=== PATIENT | female | born 1980 | race Two or more races ===

== ENCOUNTER 2025-07-06 07:12 | Emergency (ER) | payer MEDICAID, SELFPAY ==
[2025-07-06 07:25] VITALS: BP 112/75; PULSE 68; RESP 16; TEMP 36.7; O2SAT 98; BMI 30.9
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
[2025-07-06 08:41] LABS: HCG Qualitative,Urine Negative
[2025-07-06] MEDS: ACETAMINOPHEN 500 MG TABLET 1000 MG PO (09:58)
[2025-07-06] MEDS: DIPHTH,PERTUSS(ACELL),TET VAC 0.5 ML SYR- ADULT IMi (10:01)
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
[2025-07-06 11:45] VITALS: BP 112/72; PULSE 68; RESP 18; TEMP 36.6; O2SAT 99
== END 2025-07-06 11:53 | disposition home or self-care (01) ==
PROVIDERS: Nurse Practitioner Primary Care; Emergency Provider Emergency Medicine
DX: S60.222A Contusion of left hand, initial encounter (principal); M79.605 Pain in left leg; M54.2 Cervicalgia; V89.2XXA Person injured in unspecified motor-vehicle accident, traffic, initial encounter; Y92.410 Unspecified street and highway as the place of occurrence of the external cause; R07.9 Chest pain, unspecified; R10.9 Unspecified abdominal pain; Z23 Encounter for immunization
CPT/HCPCS: 70450; 71250; 72125; 73130; 73590; 74176; 81025; 90471; 90715; 99284; A9270

== ENCOUNTER 2025-07-21 07:25 | Day surgery (SDC) | payer MEDICAID, SELFPAY ==
[2025-07-18 08:26] VITALS: BMI 31.1
[2025-07-18 09:54] LABS: Basophils # (Auto) 0.0 Thou/mm3 (0.0-0.2); Basophils % (Auto) 1 % (0-2.5); Eosinophils # (Auto) 0.1 Thou/mm3 (0.0-0.5); Eosinophils % (Auto) 2 % (0-10); Hematocrit 39.4 % (36.0-46.0); Hemoglobin 13.1 g/dL (12.0-16.0); Immature Granulocytes Auto 0.01 Thou/mm3 (0.00-0.00); Lymphocytes # (Auto) 1.8 Thou/mm3 (1.0-4.8); Lymphocytes % (Auto) 32 % (10-50); Mean Corpuscular HGB Conc 33.2 g/dl (31.0-37.0); Mean Corpuscular Hemoglobin 31.3 pg (25.0-35.0); Mean Corpuscular Volume 94 fL (80-100); Monocytes # (Auto) 0.4 Thou/mm3 (0.0-0.8); Monocytes % (Auto) 6 % (0-12); Neutrophils # (Auto) 3.5 Thou/mm3 (1.8-7.7); Neutrophils % (Auto) 59 % (37-80); Nucleated Red Blood Cell # 0.00 Thou/mm3 (0.00-0.00); Nucleated Red Blood Cell % 0 /100 WBC (0); Platelet Count 222 Thou/mm3 (140-440); RDW Standard Deviation 42.5 fL (36.4-46.3); Red Blood Count 4.18 Miln/mm3 (4.00-5.20); White Blood Count 5.9 Thou/mm3 (3.6-11.0)
[2025-07-18 09:59] LABS: INR 1.0 (0.9-1.3); Partial Thromboplastin Time 24.8 Seconds (22.0-36.0); Prothrombin Time 10.9 Seconds (9.0-12.2)
[2025-07-18 10:04] LABS: Anion Gap 7 (7-16); BUN/Creatinine Ratio 15 Ratio (12-20); Blood Urea Nitrogen 9 mg/dL (9-23); Calcium 9.1 mg/dL (8.3-10.6); Carbon Dioxide 26.7 mMol/L (20.0-31.0); Chloride 107 mMol/L (98-107); Creatinine (Component) 0.6 mg/dL (0.6-1.3); Estimated Creatinine Clearance 112.8 mL/min (>60); Glucose 96 mg/dL (74-106); Osmolality,Calculated 279 (275-295); Potassium 4.2 mMol/L (3.4-5.1); Sodium 141 mMol/L (136-145); eGFR > 60 See Note
--- NOTE | 2025-07-20 14:23 | SUR.PREOP ---
Pt phone unable to leave message, pt's did not answered, called pt's mother, she answered and left a message to have pt here at 0700 tomorrow.
[2025-07-21] VITALS (8 sets, daily range): BP systolic 107–121; BP diastolic 69–84; PULSE 64–81; RESP 14–20; TEMP 36.3–36.6; O2SAT 93–98; BMI 30.9
[2025-07-21] MEDS: RINGERS LACTATED 1000 ML 1,000 ML 20 ML IV (08:07)
--- NOTE | 2025-07-21 10:24 | ESOP_ITS ---
Date of Procedure 07/21/25 Pre Op Diagnosis Symptomatic varicose veins left lower extremity Post Op Diagnosis Same as pre-op diagnosis Procedure Varicose vein excisions left lower extremity through 42 separate incisions Findings All marked varicose veins were successfully disrupted or removed Procedure Description With the patient standing in the preop area all varicose veins to be removed were carefully marked with a sharpie pen. The patient was brought to the operating room and general anesthesia was induced. Left lower extremity st erilely prepped and draped. A timeout was performed. The varicose veins were removed by making a small skin kei in the marked areas with a #11 blade then bluntly enlarging the incision and using a mosquito clamp to sequentially excise the veins. After all veins were successfully removed or disrupted hemostasis was obtained and the leg was cleaned then half-inch Steri-Strips were used to reapproximate the incisions. The leg was then wrapped with gauze Kerlix and Daniel wrap. The patient woke up from anesthesia was moved to recovery in stable condition Anesthesia other (Laryngeal mask anesthesia) Pathology / specimen Other (Left leg varicose veins) Estimated Blood Loss 75 Condition Stable Disposition PACU Surgeon Louie Cruz MD Surgical Staff Operation Date: 07/21/25 09:45 Case Staff Anesthesiologist: Evangelist Knox RNbrand sales consultant: Elidia Day
--- NOTE | 2025-07-21 10:28 | SUR.PHASEI ---
1028: Pt. AAOx4, vitals stable, breathing unlabored, no complaint of pain or nausea, dressing to left leg CDI, no active bleed noted, bilateral dorsalis pedis pulses strong and regular, cap refill to bilateral feet less than 3 seconds, report received from MD Knox and Lorie MURILLO.
[2025-07-21] MEDS: fentaNYL CIT INJ 50 mCg/ML AMP 2ML IVP ×2 (10:34→10:51)
[2025-07-21] MEDS: ONDANSETRON INJ 2 MG/ML INJ 2 ML 4 MG IVP (11:18)
--- NOTE | 2025-07-21 11:35 | SUR.PHASEII ---
1135: Pt. AAOx4, vitals stable, breathing unlabored, no complaint of pain or nausea, dressing to left leg CDI, pt. stood up for 2 minutes with weight on her left leg, no active bleed noted, bilateral dorsalis pedis pulses strong and regular, cap refill to bilteral feet less than 3 seconds, pt. tolerated sips of water well. Gave discharge instructions in russian per pt. request, both verbalized understanding and had no further questions. Pt. left with all personal belongings.
== END 2025-07-21 11:35 | disposition home or self-care (01) ==
PROVIDERS: PCP Family Medicine; Referring Provider Surgery Vascular Surgery; Visit Provider Surgery Vascular Surgery
PROC: (CPT 37785; principal; 2025-07-21 09:30)
DX: I83.812 Varicose veins of left lower extremity with pain (principal)
CPT/HCPCS: 37766; 36415; 80048; 85025; 85610; 85730; A4649; J0131; J0690; J1100; J2250; J2371; J2405; J2704; J2765; J3010; J3490; J7120